=== PATIENT | female | born 1970 | race Caucasian/White ===

== ENCOUNTER 2019-04-30 16:26 | Emergency (ER) | payer OTHER ==
[~2019-04-30] VITALS: Ht 157.5 cm; Wt 63.0 kg
[2019-04-30 16:42] VITALS: BP 129/74
[2019-04-30] MEDS ORDERED: KETOROLAC 30 MG/1 ML ONE (17:11)
[2019-04-30] MEDS ORDERED: KETOROLAC 30 MG/1 ML IM ONE (17:30)
== END 2019-04-30 18:39 | disposition home or self-care (01) ==
LOC: ED 18:33
DX: G89.11 Acute pain due to trauma (principal); M25.561 Pain in right knee; M54.5 Low back pain; V49.59XA Passenger injured in collision with other motor vehicles in traffic accident, initial encounter; Y93.89 Activity, other specified; Y92.410 Unspecified street and highway as the place of occurrence of the external cause; Y99.8 Other external cause status
CPT/HCPCS: 72110; 96372; 99283; J1885